=== PATIENT | male | born 1955 | race Caucasian/White ===

== ENCOUNTER 2016-07-25 15:53 | Emergency (ER) | payer OTHER ==
--- NOTE | ~2016-07-25 | ER ---
PATIENT'S NAME: ASHOK GEE [facility] AGE: 61 Y [address] ROOM: [place] [address] LOCATION: [facility] ADMIT DATE: 07/25/2016 ER/Outpatient Report DISCHARGE DATE: 07/25/2016 FAMILY PHYSICIAN: Vik Kirby MD ATTENDING PHYSICIAN: Brendan Trujillo CHIEF COMPLAINT: Right wrist laceration. Time of Patient Arrival: 1553 hours. Time of Patient Evaluation: 1609 hours. HISTORY OF PRESENT ILLNESS: This is a 61-year-old male who presents to the ER, who sustained a laceration to his wrist approximately 30 minutes prior to arrival. The patient states he was trying to fix director post and a wrench slipped and cut the side of his wrist. He got the bleeding under control. He does not believe he is up to date on his immunization for tetanus. He denies any other problems at this time. ALLERGIES: PENICILLIN AND E-MYCIN. MEDICATIONS: Please see medication list in nurse's notes. PAST MEDICAL HISTORY: He has had back surgery and knee surgery. SOCIAL HISTORY: Denies smoking, drug, or alcohol use. REVIEW OF SYSTEMS: CONSTITUTIONAL: Denies any change in weight or fatigue. MUSCULOSKELETAL: No weakness or myalgias. HEME: No easy bruising or bleeding. SKIN: Has a laceration to his right wrist. PHYSICAL EXAMINATION: VITAL SIGNS: Height 6 feet 1 inch stated, weight 96.8 kg taken, blood pressure is 145/95, pulse 89, respirations 14, temperature 96.7 degrees tympanically, saturations 92% on room air. Shiraz Coma Score is 15. GENERAL: Alert, calm, well-developed male, in no acute distress. EXTREMITIES: No clubbing or cyanosis. He does have full range of motion of all limbs. PATIENT'S NAME: RAFAEL GEEALL Ana [facility] AGE: 61 Y [address] ROOM: [place] [address] LOCATION: [facility] ADMIT DATE: 07/25/2016 ER/Outpatient Report DISCHARGE DATE: 07/25/2016 FAMILY PHYSICIAN: Vik Kirby MD ATTENDING PHYSICIAN: Brendan Trujillo NEURO: Cranial nerves 2 through 12 grossly intact. Gait is steady without assistance. SKIN: He has a 2-cm laceration noted to the right wrist, it is not actively draining or actively bleeding at this time. LABORATORY DATA AND X-RAYS: None were done. IMPRESSION: A 2-cm laceration to right wrist. ASSESSMENT AND PLAN: I did numb the site with 1% lidocaine with epinephrine. Cleansed the site with Betadine and flushed with normal saline and repaired the laceration using 4-0 Ethilon. The patient did tolerate this well. We did place antibiotic ointment and bandage to the area. The patient was updated on his tetanus shot as well. He may take Tylenol or ibuprofen as needed for pain. We did give him a wound care handout and he should follow up with his primary care physician in 7-10 days for suture removal. The patient understands and agrees with care. SHANTAL SZYMANSKI PA-C FOR MD [employer] [employer]/carolina /[id number] d: 07/25/168 t: 08/03/16 1721, OUTPATIENT REPORT
== END 2016-07-25 16:22 | disposition disaster alternative care site (69) ==
LOC: GACC 15:53
PROC: 0HQDXZZ Repair Right Lower Arm Skin, External Approach (ICD-10-PCS; principal; 2016-07-25)
DX: S61.511A Laceration without foreign body of right wrist, initial encounter (principal); Z23 Encounter for immunization; W27.8XXA Contact with other nonpowered hand tool, initial encounter